=== PATIENT | female | born 1965 | race Hispanic/Latino ===

== ENCOUNTER → 2020-08-25 | Day surgery (SDC) | payer OTHER ==
[~2020-08-25] VITALS: Ht 157.5 cm; Wt 114.3 kg
[2020-08-25] VITALS (7 sets, daily range): BP systolic 84–149; BP diastolic 34–68
[~2020-08-25] MED LIST: AEC81 PO; ALBU8.5H8 IH; CETI10TA57 PO; FLUO90CA4 PO; HYDR25TA PO; INSU100I26 SQ; LIDOCAINE HCL-MPF 2% 5ML VIAL ONE; LISI40TA4 PO; METF-527 PO; METO-391 PO; MIDAZOLAM HCL 1 MG/ML 2ML VIAL ONE; OMEP-272 PO; PROPOFOL 10 MG/ML 20ML VIAL IV ONE; SIMV-43 PO; SODIUM CHLORIDE 0.9% 1000ML 1,000 ML IV ONE
== END ==
LOC: SUH 10:27 → DAH 10:27 → UNDOFXSDCACCOM 10:27 → EDSDCBED 10:27
PROVIDERS: ATTEND Internal Medicine Gastroenterology
DX: Z12.11 Encounter for screening for malignant neoplasm of colon (principal); K21.00 Gastro-esophageal reflux disease with esophagitis, without bleeding; K62.1 Rectal polyp; K29.00 Acute gastritis without bleeding; K44.9 Diaphragmatic hernia without obstruction or gangrene; K64.0 First degree hemorrhoids
CPT/HCPCS: 43239; 45380; 82948 ×2; A4215; A4221; A4222; A4223; A4606; A4620; A4657; A4663; J2250; J2704 ×3; J3490; J7030

== ENCOUNTER 2024-06-27 08:11 | Emergency (ER) | payer BC, OTHER ==
[~2024-06-27] VITALS: Ht 157.5 cm; Wt 108.9 kg
[~2024-06-27 08:11] MED LIST changes: -LIDOCAINE HCL-MPF 2% 5ML VIAL ONE; -LISI40TA4 PO; +LISI40TA9 PO; -MIDAZOLAM HCL 1 MG/ML 2ML VIAL ONE; -PROPOFOL 10 MG/ML 20ML VIAL IV ONE; -SODIUM CHLORIDE 0.9% 1000ML 1,000 ML IV ONE
[2024-06-27 09:29] LABS: ADD UA MICROSCOPIC YES; APPEARANCE,URINE CLOUDY (CLEAR); BILIRUBIN,URINE NEGATIVE (NEGATIVE); COLOR,URINE LIGHT-YELLOW (YELLOW); GLUCOSE, URINE (UA) NEGATIVE (NEGATIVE); KETONES,URINE NEGATIVE (NEGATIVE); LEUKOCYTE ESTERASE ,URINE 250 Leu/uL (NEGATIVE); NITRATE,URINE NEGATIVE (NEGATIVE); PROTEIN,URINE 20 mg/dL (NEGATIVE); UROBILINOGEN,URINE 0.2 mg/dL (0.2-1.0)
[2024-06-27 09:34] LABS: BACTERIA,URINE FEW /HPF (None Seen); MUCUS,URINE RARE LPF (None Seen); RBC,URINE 0-1 /HPF (0-1); SQUAMOUS EPITHELIAL CELL,UR MOD /HPF (0-2); WBC CLUMP FEW /HPF (0-1); WBC,URINE 51-100 /HPF (0-1)
[2024-06-27 09:46] LABS: CREATININE 1.3 mg/dL (0.5-1.0); POTASSIUM 3.4 mmol/L (3.5-5.1)
[2024-06-27 09:47] LABS: BASOPHILS # (AUTO) 0.02 K/uL (0.00-0.20); BASOPHILS % (AUTO) 0.2 % (0.0-5.0); EOSINOPHILS # (AUTO) 0.13 K/uL (0.00-0.70); EOSINOPHILS % (AUTO) 1.4 % (0.0-8.0); HEMATOCRIT 30.7 % (36-48); IMMATURE GRANULOCYTE ABSOLUTE 0.05 K/uL (0-1); LYMPHOCYTES % (AUTO) 21.1 % (21.0-51.0); MEAN CORPUSCULAR HGB CONC 32.2 g/dL (32.0-36.0); MEAN CORPUSCULAR VOLUME 74.3 fL (79-99); MONOCYTES # (AUTO) 0.9 K/uL (0.1-1.0); NEUTROPHILS # (AUTO) 6.2 K/uL (1.8-7.7); NEUTROPHILS % (AUTO) 66.8 % (40.0-77.0); PLATELET COUNT (AUTO) 295 K/uL (130-400); RED BLOOD CELL COUNT(AUTO) 4.13 MIL/uL (4.00-5.50); RED CELL DISTRIBUTION WIDTH 13.4 % (11.0-15.5); WHITE BLOOD COUNT (AUTO) 9.3 K/uL (4.8-10.8)
[2024-06-27 09:50] LABS: ALBUMIN 2.6 g/dL (3.5-5.0); BILIRUBIN,DIRECT 0.1 mg/dL (0.0-0.3); BILIRUBIN,TOTAL 0.3 mg/dL (0.2-1.0); TOTAL PROTEIN, SERUM 7.7 g/dL (6.0-8.3)
[2024-06-27] MEDS: SUCRALFATE 1 GM/10 ML PO ONE (10:32)
[2024-06-27] MEDS: HYOSCYAMINE SULFATE 0.125 MG TAB.SUBL SL ONE (10:32)
[2024-06-27] MEDS: 0.9%NACL 1000ML 1,000 ML IV ONE (10:32)
[2024-06-27] MEDS: cefTRIAXone 1G VIAL IVPB ONE (12:05)
[2024-06-27] MEDS ORDERED: SUCR1TAB28 PO (13:34)
[2024-06-27] MEDS ORDERED: [UNRECOGNIZED DRUG - CODE] PO (13:34)
[2024-06-27 14:24] VITALS: BP 142/67; PULSE 71; RESP 14; TEMP 98.4; O2SAT 98
== END 2024-06-27 14:25 | disposition home or self-care (01) ==
LOC: EDH 08:11
DX: N39.0 Urinary tract infection, site not specified (principal); R19.7 Diarrhea, unspecified; F51.5 Nightmare disorder; E11.9 Type 2 diabetes mellitus without complications; E78.00 Pure hypercholesterolemia, unspecified; K21.9 Gastro-esophageal reflux disease without esophagitis; I10 Essential (primary) hypertension; F41.9 Anxiety disorder, unspecified; Z88.0 Allergy status to penicillin; Z79.84 Long term (current) use of oral hypoglycemic drugs; Z79.4 Long term (current) use of insulin; Z79.82 Long term (current) use of aspirin; Z79.899 Other long term (current) drug therapy; Z85.828 Personal history of other malignant neoplasm of skin; Z90.49 Acquired absence of other specified parts of digestive tract; Z98.890 Other specified postprocedural states
CPT/HCPCS: 99284; 96365; 96361; 96366; 80076; 80048; 83690; 85025; 87086; 81001; 36415; 93005; J7030; J0696